=== PATIENT | female | born 1990 | race Caucasian/White ===

== ENCOUNTER 2018-06-12 09:26 | Day surgery (SDC) | payer MEDICAID, OTHER ==
[2018-06-12] MEDS ORDERED: LR 1,000 ML IV ONE (09:46)
[2018-06-12] MEDS ORDERED: CLINDAMYCIN 900 MG/DEXTROSE 50 ML IV ONE (10:23)
--- NOTE | 2018-06-12 10:27 | PDGENHP ---
History and Physical History and Physical: CC: ankle pain HPI: 28 y/o fell twisting ankle. pain, All: PCN PMH: None P/E: Head - normocephalic, PERRL Neck - supple Chest - CTA Heart - RRR Abd - S,NT,ND Ext - Ankle lax to inv stress, peroneal tendons dislocated Assessment: Ankle instability, dislocated peroneal tendons Plan: Ankle lig reconstruction, reconstruction dislocated peroneal tendons
[2018-06-12] MEDS ORDERED: HYDROmorphONE/DILAUDID 2 MG/ML INJ ONE ×2 (11:08→11:56)
[2018-06-12] MEDS ORDERED: MIDAZOLAM 2 MG/2 ML VIAL ONE (11:08)
[2018-06-12] MEDS ORDERED: ROPIVACAINE HCL 150 MG/30 ML INJ ONE (11:11)
[2018-06-12] MEDS ORDERED: LIDOCAINE 2% 2 ML INJ ONE ×2 (11:11→11:55)
[2018-06-12] MEDS ORDERED: MIDAZOLAM 2 MG/2 ML VIAL IVP ONE (11:33)
[2018-06-12] MEDS ORDERED: HYDROmorphONE/DILAUDID 1 MG/ML INJ IVP PRN (11:33)
--- NOTE | 2018-06-12 11:33 | PDANEPAE ---
ANE Past Medical History - Cardiovascular History Hx Hypertension: No Hx Arrhythmias: No Hx Chest Pain: No Hx Coronary Artery / Peripheral Vascular Disease: No Hx CHF / Valvular Disease: No Hx Palpitations: No - Pulmonary History Hx COPD: No Hx Asthma/Reactive Airway Disease: No Hx Recent Upper Respiratory Infection: No Hx Oxygen in Use at Home: No Hx Sleep Apnea: No Sleep Apnea Screening Result - Last Documented: Negative Pulmonary History Comment: DENIES SOB W STAIRS - Neurologic History Hx Cerebrovascular Accident: No Hx Seizures: No Hx Dementia: No - Endocrine History Hx Diabetes: No - Renal History Hx Renal Disorders: No - Liver History Hx Hepatic Disorders: No - Neurological & Psychiatric Hx Hx Neurological and Psychiatric Disorders: Yes Neurological / Psychiatric History Comment: Hx of anxiety, not an issue at this time. ADHD - Cancer History Hx Cancer: No - Congenital Disorder History Hx Congenital Disorders: No - GI History Hx Gastrointestinal Disorders: No Gastrointestinal History Comment: OCC REFLUX - Other Health History Other Health History: lower front permanent retainer - Chronic Pain History Chronic Pain: No - Surgical History Prior Surgeries: right breast bx, 2015. TONSILS. WISDOM TEETH ANE Review of Systems Review of Systems: - Exercise capacity METS (RN): 6 METS ANE Patient History - Allergies Allergies/Adverse Reactions: fentanyl Allergy (Verified 06/11/18 15:54) hyperventilation penicillin Allergy (Verified 06/11/18 15:55) Hives shellfish derived Allergy (Verified 06/12/18 09:58) Vomiting SEASONAL Allergy (Uncoded 06/11/18 15:55) Congestion - Home Medications Home Medications: Jelena Allergy 06/11/18 [Last Taken 06/11/18] Probiotic 06/11/18 [Last Taken 06/11/18] Trinessa Tablet 06/11/18 [Last Taken 06/11/18] Turmeric 06/11/18 [Last Taken 06/11/18] Vitamin D3 06/11/18 [Last Taken 06/11/18] - NPO status NPO Since - Liquids (Date): 06/12/18 NPO Since - Liquids (Time): 07:45 NPO Since - Solids (Date): 06/11/18 NPO Since - Solids (Time): 19:00 - Smoking Hx Smoking Status: Never smoked - Family Anes Hx Family Hx Anesthesia Complications: NONE ANE Labs/Vital Signs - Vital Signs Blood Pressure: 119/71 Heart Rate: 79 Respiratory Rate: 15 O2 Sat (%): 98 Height: 162.56 cm Weight: 58.967 kg ANE Physical Exam - Airway Neck exam: FROM Mallampati Score: Class 1 Mouth exam: normal dental/mouth exam - Pulmonary Pulmonary: no respiratory distress - Cardiovascular Cardiovascular: regular rate and rhythym - ASA Status ASA Status: I ANE Anesthesia Plan Anesthesia Plan: GA w LMA Regional Anesthesia: popliteal SNB
[2018-06-12] MEDS ORDERED: BUPIVACAINE 0.5% 30 ML SDV ONE (11:37)
[2018-06-12] MEDS ORDERED: fentaNYL 250 MCG/5 ML INJ ONE (11:54)
[2018-06-12] MEDS ORDERED: PROPOFOL/EMULSION 500 MG/50 ML BOTTLE IV ONE (11:55)
[2018-06-12] MEDS ORDERED: ONDANSETRON 4 MG/2 ML VIAL ONE (11:55)
[2018-06-12] MEDS ORDERED: DEXAMETHASONE 4 MG/ML VIAL ONE (11:55)
[2018-06-12] MEDS ORDERED: ONDANSETRON 4 MG/2 ML VIAL IVP PRN (13:10)
[2018-06-12] MEDS ORDERED: PROMETHAZINE HCL 25 MG/ML INJ IVP PRN (13:10)
[2018-06-12] MEDS ORDERED: NALOXONE HCL 0.4 MG/ML INJ IVP PRN (13:10)
[2018-06-12] MEDS ORDERED: HYDROmorphONE/DILAUDID 2 MG/ML INJ IVP PRN (13:10)
[2018-06-12] MEDS ORDERED: HYDROCODONE/APAP 5/325 TAB PO PRN (13:10)
[2018-06-12] MEDS ORDERED: KETOROLAC 30 MG/1 ML SDV IVP ONE (13:11)
--- NOTE | 2018-06-12 13:11 | POSTANESTH ---
Post Anesthetic Evaluation Cardiovascular Status: Normal, Stable Respiratory Status: Normal, Stable Level of Consciousness/Mental Status: Mildly Sleepy, Arousable Pain Control: Adequate, Prn Tx Ordered Nausea/Vomiting Control: Adequate, Prn Tx Ordered Complications Possibly Related to Anesthesia: None Noted
[2018-06-12] MEDS ORDERED: traMADol 50 MG TAB ONE (13:21)
[2018-06-12] MEDS ORDERED: KETOROLAC 30 MG/1 ML SDV ONE (13:22)
[2018-06-12 13:37] VITALS: BP 103/68
--- NOTE | 2018-06-14 01:52 | GOP ---
DATE OF OPERATION: 06/12/2018 SURGEON: Sher Bianchi MD ANESTHESIA: General plus popliteal block performed by the anesthesiologist at my request for postope rative pain management. PREOPERATIVE DIAGNOSIS: 1. Dislocated right peroneal tendons. 2. Right ankle instability. 3. Right peroneus brevis tear. POSTOPERATIVE DIAGNOSIS: 1. Dislocated right peroneal tendons. 2. Right ankle instability. 3. Right peroneus brevis tear. PROCEDURE PERFORMED: 1. Reconstruction right dislocated peroneal tendons. 2. Right lateral ankle ligament reconstruction. 3. Right peroneus brevis repair. FINDINGS: ESTIMATED BLOOD LOSS: Minimal. INDICATIONS: The patient is a 28-year-old who sustained a fall resulting in immediate ankle pain. C linically, she was noted to have dislocated peroneal tendons, as well as chronic ankle instability. Based on the nature of her injury and the universally poor outcome with nonsurgical management of the se injuries, it was recommended that operative treatment consisting of open repair of her dislocated tendons and ankle ligament reconstruction be pursued. The patient acknowledged she understood the po tential risks including but not limited to bleeding, infection, neurovascular damage, loss of limb fu nction, pain or functional limitations despite operative treatment, recurrent dislocation of the tend ons, and anesthetic risks. She acknowledged she understood the potential risks, planned procedure, a nd postoperative plan well, and had all questions answered prior to surgery. She gave her consent fo r the operative procedure. DESCRIPTION OF PROCEDURE: The patient was brought to the operating after IV antibiotics were adminis tered. Popliteal block was performed in preop holding by the anesthesiologist at my request for post operative pain management. General anesthetic was administered. A tourniquet was placed on the [facility] calf. The right lower leg was prepped and draped in standard sterile fashion. After marking the i ncision and [employer] wrap exsanguination, the tourniquet was inflated to 250. An oblique incision was made starting along the posterior aspect of the distal fibula and curving int o the lateral hindfoot. Skin and subcutaneous tissue were sharply incised. Sharp dissection was car ried down to the peroneal sheath. The retinaculum was noted to be completely disrupted off the fibul a. Examination the peroneal tendons revealed a longitudinal split tear in the peroneus brevis. The split portions of the tendon were sharply debrided, and the remaining aspect of the tendon was "tubul arized" with 4-0 PDS suture. The calcaneofibular ligament was identified and felt to be in satisfactory condition for primary adva ncement. The ligament was released off its fibular insertion. A 4.5 mm drill bit was utilized to cr eate a trough in the fibula starting at the anatomic insertion of the ligament. Two 2.0 mm drill hol es were connected from the lateral aspect of the fibula into the 4.5 trough. The trough was slightly deepened with a curette. #1 PDS suture was placed through one of the 2.0 drill holes out the 4.5 dr ill hole securing the calcaneal fibular ligament back through the 4.5 drill hole and out the other 2. 0 drill hole. The tendon ligament was left for further tightening. The anterior talofibular ligamen t was then vertically incised and secured onto itself in a "[id number]" manner with #1 PDS sutur e. Attention was then directed toward the peroneal retinaculum. A 2.0 mm drill bit was utilized to crea te drill holes in the distal fibula near the site where the peroneal retinaculum was previously attac hed. The drill holes came out and deep in position. #1 PDS suture was placed through the peroneal r etinaculum through the drill holes in the fibula, and the peroneal retinaculum was brought into a tig htened position. The peroneal tendons were stable. Additional portion of the retinaculum was furthe r reconstructed with the #1 PDS suture. The extensor retinaculum was then advanced into the perioste um of the fibula in a tightened manner with 0 PDS suture as a "modified" reinforcement. T he sutures which had been placed in the calcaneal fibular ligament were tightened. The ankle was exa mined and found to have excellent stability. The attention was directed toward closure. The deep tissue was closed with 2-0 Vicryl suture in inte rrupted fashion. Subcutaneous tissue was closed with 3-0 Vicryl suture in interrupted fashion. Skin was closed with 4-0 nylon interrupted sutures. 0.5% Marcaine without epinephrine was injected in th e wound sites. The wounds were dressed with sterile Adaptic, 4 x 4, and Webril, and leg was placed i n a below-knee splint. The patient tolerated the procedure well, and was taken to the recovery room, and extubated in stable condition postoperatively. All sponge, needle, and instrument counts were r eported as being correct. DRAINS: None. COMPLICATIONS: None. PLAN: The patient will be discharged home, nonweightbearing on the operative extremity. /[id number]/MODL
== END 2018-06-12 14:26 | disposition home or self-care (01) ==
LOC: FSGY 09:26
PROVIDERS: ATTEND Orthopaedic Surgery Foot and Ankle Surgery
DX: M65.871 Other synovitis and tenosynovitis, right ankle and foot (principal); M25.371 Other instability, right ankle; S93.491S Sprain of other ligament of right ankle, sequela; W19.XXXS Unspecified fall, sequela
CPT/HCPCS: J1100; J1170; J1885; J2250; J2405; J2704; J2795; J3010